=== PATIENT | male | born 1975 | race American Indian/Alaskan Native ===

== ENCOUNTER 2017-03-22 23:07 | Emergency (ER) | payer BC, OTHER ==
[2017-03-23] MEDS ORDERED: TORADOL IM ONE (06:00)
[2017-03-23] MEDS ORDERED: NORCO 5/325 PO ONE (06:00)
--- NOTE | 2017-03-23 06:01 | Emergency Department Report ---
ED Peds HEENT HPI - General Chief Complaint: Sore Throat Stated Complaint: SORE THROAT Source: patient Mode of arrival: Ambulatory Limitations: No Limitations - History of Present Illness Initial Comments: 42 year old male presents to ED with sore throat x2 days. patient is stable, neurologically intact and in no acute distress. patient denies cough or fevers. MD Complaint: throat pain -: Gradual, days(s) (2) Fever: No Pain Location: throat Radiation: ear Quality: aching Consistency: constant Worsens With: eating Associated Symptoms: sore throat. denies: nasal congestion/discharge, cough, drooling, rash, swollen glands, hoarseness, neck stiffness/pain, nasal bleed, ear discharge - Centor Criteria Exudate or Swelling of Tonsils: (0) No Tender/Swollen Anterior Cervical Lymph Nodes: (0) No Fever ( T > 38C, 100.4F): (0) No Abscence of Cough: (1) Yes - Related Data Previous Rx's Medication Instructions Recorded Last Taken Type Meloxicam [Mobic] 7.5 mg PO QDAY #5 tablet 03/23/17 Unknown Rx Allergies Allergy/AdvReac Type Severity Reaction Status Date / Time No Known Allergies Allergy Verified 03/23/17 00:17 ED Review of Systems ROS: Stated complaint: SORE THROAT Other details as noted in HPI Constitutional: denies: chills, fever Eyes: denies: eye pain, eye discharge, vision change ENT: ear pain, throat pain Respiratory: denies: cough, shortness of breath, wheezing Cardiovascular: denies: chest pain, palpitations Endocrine: no symptoms reported Gastrointestinal: denies: abdominal pain, nausea, diarrhea Genitourinary: denies: urgency, dysuria Musculoskeletal: denies: back pain, joint swelling, arthralgia Skin: denies: rash, lesions Neurological: denies: headache, weakness, paresthesias Psychiatric: denies: anxiety, depression Hematological/Lymphatic: denies: easy bleeding, easy bruising ED Peds HEENT EXAM - General General appearance: alert, in no apparent distress Limitations: No Limitations - Head Head exam: Positive: atraumatic, normocephalic, normal inspection - Eye Eye Exam: Normal Apperance, PERRL, EOMI - ENT ENT exam: Positive: normal exam, normal orophraynx, mucous membranes moist, TM' s normal bilaterally, normal external ear exam Negative: Tonsillar Exudate, Pharangeal Exudate, Peritonsillar Swelling Ear Exam: Normal External Exam: Left, Right - Neck Neck exam: Positive: normal inspection, full ROM. Negative: tenderness, lymphadenopathy - Respiratory Respiratory exam: Positive: normal lung sounds bilaterally. Negative: respiratory distress, wheezes, rales, rhonchi, stridor - Cardiovascular Cardiovascular Exam: Positive: regular rate, normal rhythm - GI/Abdominal GI/Abdominal exam: Positive: soft, normal bowel sounds. Negative: distended, tenderness, guarding, rebound - Rectal Rectal exam: Positive: deferred - Extremities Extremities exam: Positive: normal inspection - Back Back exam: normal inspection - Neurological Neurological Exam: Positive: Alert, Oriented X3, Normal Gait - Psychiatric Psychiatric exam: Positive: normal affect, normal mood - Skin Skin exam: Positive: warm, dry, intact, normal color ED Course Vital Signs 03/23/17 03/23/17 00:07 06:33 Temperature 99.0 F 98.8 F Pulse Rate 74 71 Respiratory 18 16 Rate Blood Pressure 121/67 Blood Pressure 120/74 [Right] O2 Sat by Pulse 100 99 Oximetry ED Medical Decision Making - Lab Data negative rapid strep test - Medical Decision Making 42 year old male presents to ED with sore throat x2 days. patient denies having diabetes, COPD. patient is stable, afebrile, neurologically intact and in no acute distress. patient has negative rapid strep test. patient has no abscess, or tonsilar exudates, swelling, lymphadnopathy present on examination. Critical care attestation.: If time is entered above; I have spent that time in minutes in the direct care of this critically ill patient, excluding procedure time. ED Disposition Clinical Impression: Viral pharyngitis Disposition: DC-01 TO HOME OR SELFCARE Is pt being admited?: No Does the pt Need Aspirin: No Condition: Stable Instructions: Pharyngitis (ED) Prescriptions: Meloxicam [Mobic] 7.5 mg PO QDAY #5 tablet Referrals: PRIMARY CARE, [Primary Care Provider] - 3-5 Days Forms: Work/School Release Form(ED)
[2017-03-23 06:34] VITALS: BP 120/74
== END 2017-03-23 06:35 | disposition home or self-care (01) ==
LOC: ED 23:07
DX: J02.9 Acute pharyngitis, unspecified (principal)
CPT/HCPCS: 87116; 87430; 96372; 99282; J1885